=== PATIENT | female | born 1990 | race Caucasian/White ===

== ENCOUNTER 2018-07-09 18:17 | Outpatient (CLI) | payer MEDICAID ==
[2018-07-09 18:31] VITALS: BP 113/77
== END 2018-07-09 19:10 | disposition home or self-care (01) ==
LOC: TRG 18:17
PROVIDERS: ATTEND Obstetrics & Gynecology
DX: O47.03 False labor before 37 completed weeks of gestation, third trimester (principal); Z3A.36 36 weeks gestation of pregnancy
CPT/HCPCS: 59025

== ENCOUNTER 2018-07-10 14:45 | Inpatient (IN) | payer MEDICAID ==
[2018-07-10] MEDS ORDERED: LACTATED RINGERS 1,000 ML ONE (15:15)
[2018-07-10 15:54] LABS: Basophils % (Auto) 0.3 % (0.0-1.8); Eosinophils % (Auto) 0.3 % (0.0-4.3); Hematocrit 41.4 % (30.3-42.9); Hemoglobin 13.8 gm/dl (10.1-14.3); Lymphocytes % (Auto) 22.2 % (13.4-35.0); Mean Corpuscular HGB Conc 33 % (30-34); Mean Corpuscular Volume 85 fl (79-97); Monocytes # (Auto) 0.8 K/mm3 (0.0-0.8); Platelet Count 253 K/mm3 (140-440); Red Blood Count 4.86 M/mm3 (3.65-5.03); Red Cell Distribution Width 14.8 % (13.2-15.2)
[2018-07-10] MEDS ORDERED: LACTATED RINGERS 1,000 ML IV SCH ×2 (16:00→18:00)
[2018-07-10] MEDS ORDERED: STADOL ONE (17:55)
[2018-07-10] MEDS ORDERED: ZOFRAN IV PRN (17:57)
[2018-07-10] MEDS ORDERED: XYLOCAINE 2% INFILTRATI ONE (17:57)
[2018-07-10] MEDS ORDERED: STADOL IV PRN (17:57)
[2018-07-10] MEDS ORDERED: BRETHINE IVP PRN (17:57)
[2018-07-10] MEDS ORDERED: MINERAL OIL PO PRN (17:57)
[2018-07-10] MEDS ORDERED: BRETHINE SUB-Q PRN (17:57)
[2018-07-10] MEDS ORDERED: SUBLIMAZE IV PRN (17:57)
[2018-07-10] MEDS ORDERED: PITOCin/NS 30 UNIT/500ML 30 UNITS/500 ML BAG IV SCH (18:00)
[2018-07-10] MEDS ORDERED: PITOCin/NS 20 UNIT/1000ML DRIP 20 UNITS/1,000 ML BAG IV SCH (18:00)
[2018-07-10] MEDS ORDERED: NARCAN 2 MG/2 ML IV PRN (18:10)
--- NOTE | 2018-07-10 18:53 | Anesthesia Day of Surgery ---
Anesthesia Day of Surgery - Day of Surgery Patient Examined: Yes Patient H&P Reviewed: Yes Patient is NPO: Yes Beta Blockers: No Cardiac Clearance: No Pulmonary Clearance: No Jayson's Test: N/A
--- NOTE | 2018-07-10 18:53 | Anesthesia Consultation ---
Anesthesia Consult and Med Hx Date of service: 07/10/18 - Airway Anesthetic Teeth Evaluation: Good ROM Head & Neck: Adequate Mental/Hyoid Distance: Adequate Mallampati Class: Class II Intubation Access Assessment: Probably Good - Pulmonary Exam CTA: Yes - Cardiac Exam Cardiac Exam: RRR - Pre-Operative Health Status ASA Pre-Surgery Classification: ASA2 Proposed Anesthetic Plan: Epidural - Pulmonary Hx Smoking: No Hx Asthma: No Hx Respiratory Symptoms: No SOB: No COPD: No Home Oxygen Therapy: No Hx Pneumonia: No Hx Sleep Apnea: No - Cardiovascular System Hx Hypertension: No Hx Coronary Artery Disease: No Hx Heart Attack/AMI: No Hx Angina: No Hx Percutaneous Transluminal Coronary Angioplasty (PTCA): No Hx Cardia Arrhythmia: No Hx Pacemaker: No Hx Internal Defibrillator: No Hx Valvular Heart Disease: No Hx Heart Murmur: No Hx Peripheral Vascular Disease: No - Central Nervous System Hx Neuromuscular Disorder: No Hx Seizures: No CVA: No Hx Back Pain: Yes Hx Psychiatric Problems: No - Gastrointestinal Hx Ulcer: No Hx Gastroesophageal Reflux Disease: Yes - Endocrine Hx Renal Disease: No Hx End Stage Renal Disease: No Hx Cirrhosis: No Hx Liver Disease: No Hx Insulin Dependent Diabetes: No Hx Non-Insulin Dependent Diabetes: No Hx Thyroid Disease: No Hx Hypothyroidism: No Hx Hyperthyroidism: No - Hematic Hx Anemia: No Hx Sickle Cell Disease: No - Other Systems Hx Alcohol Use: No Hx Substance Use: No Hx Cancer: No Hx Obesity: No
--- NOTE | 2018-07-10 18:54 | Post Anesthesia Evaluation ---
- Post Anesthesia Evaluation Patient Participated: Yes Airway Patent: Yes Stable Respiratory Function: Yes Nausea/Vomiting: No Temp > 96.8F: Yes Pain Manageable: Yes Adequeate Hydration: Yes Anesthesia Complications: No Block Receding Appropriately: Not Applicable Patient on Ventilator: No
[2018-07-10] MEDS ORDERED: fentaNYL-BUPIV 2 MCG/ML-0.125% 200 MCG/100 ML BAG EPIDURAL SCH (19:00)
[2018-07-10] MEDS ORDERED: AMPICILLIN/NS 2 GM/100 ML 2 GM/100 ML BAG IV ONE (19:14)
--- NOTE | 2018-07-10 22:58 | History and Physical Report ---
History of Present Illness Date of examination: 07/10/18 Chief complaint: contractions History of present illness: The patient is a 28-year-old female 2 para 1001 ANDREW 07/31/2018 at 37 weeks 0 day who presents in active labor. She denies vaginal bleeding or leakage of fluid. She has had care primarily women's [facility] since 13 weeks complicated by glucose intolerance. She is GBS positive. Past History Past Medical History: no pertinent history Past Surgical History: tonsillectomy Family/Genetic History: diabetes, hypertension Social history: - Obstetrical History Expected Date of Delivery: 07/31/18 Actual Gestation: 37 Week(s) 1 Day(s) : 2 Para: 1 Hx # Term Pregnancies: 1 Number of Pregnancies: 0 Spontaneous Abortions: 0 Induced : 0 Number of Living Children: 1 Medications and Allergies Allergies Allergy/AdvReac Type Severity Reaction Status Date / Time No Known Allergies Allergy Verified 07/10/18 15:40 Home Medications Medication Instructions Recorded Confirmed Last Taken Type No Known Home Medications [No 07/10/18 07/10/18 Unknown History Reported Home Medications] Active Meds: Active Medications Butorphanol Tartrate (Stadol) 2 mg IV Q2H PRN PRN Reason: Pain , Severe (7-10) Ephedrine Sulfate (Ephedrine Sulfate) 10 mg IV Q2M PRN PRN Reason: Hypotension Ephedrine Sulfate (Ephedrine Sulfate) 10 mg IV Q2M PRN PRN Reason: Hypotension Fentanyl (Sublimaze) 100 mcg IV Q2H PRN PRN Reason: Labor Pain Lactated Ringer's (Lactated Ringers) 1,000 mls @ 125 mls/hr IV DIRECT MARGIE Lactated Ringer's (Lactated Ringers) 1,000 mls @ 125 mls/hr IV DIRECT MARGIE Oxytocin/Sodium Chloride (Pitocin/Ns 20 Unit/1000ml Drip) 20 units in 1,000 mls @ 125 mls/hr IV DIRECT MARGIE Oxytocin/Sodium Chloride (Pitocin/Ns 30 Unit/500ml) 30 units in 500 mls @ 2 mls/hr IV TITR MARGIE; Protocol Fentanyl/Bupivacaine/Sodium Chlor (Fentanyl-Bupiv 2 Mcg/Ml-0.125%) 200 mcg in 100 mls @ 12 mls/hr EPIDURAL TITR MARGIE; Protocol Ampicillin Sodium (Ampicillin/Ns 1 Gm/50 Ml) 1 gm in 50 mls @ 100 mls/hr IV Q4HR MARGIE; Protocol Mineral Oil (Mineral Oil) 30 ml PO QHS PRN PRN Reason: Constipation Naloxone HCl (Narcan 2 Mg/2 Ml) 0.2 mg IV Q5M PRN PRN Reason: Respiratory sedation Ondansetron HCl (Zofran) 4 mg IV Q8H PRN PRN Reason: Nausea And Vomiting Terbutaline Sulfate (Brethine) 0.25 mg SUB-Q ONCE PRN PRN Reason: Hyperstimulation/Hypertonicity Terbutaline Sulfate (Brethine) 0.25 mg IVP ONCE PRN PRN Reason: Hyperstimulation/Hypertonicity Review of Systems All systems: negative - Vital Signs Vital signs: Vital Signs Pulse BP 104 H 108/70 07/10/18 15:35 07/10/18 15:35 Temp Pulse Resp BP Pulse Ox 98.2 F 117 H 16 100/65 98 07/10/18 18:52 07/10/18 22:55 07/10/18 18:52 07/10/18 22:55 07/10/18 19:36 - Physical Exam Abdomen: Positive: soft (gravid) Uterus: Positive: enlarged (gravid) Extremities: Positive: normal - Obstetrical FHR: auscultation normal Uterine Contraction Monitor Mode: External Cervical Dilatation: 9 Cervical Effacement Percentage: 90 station: -2 Uterine Contraction Pattern: Regular Uterine Tone Measurement Phase: Resting Uterine Contraction Intensity: Strong/Firm Results Result Diagrams: 07/10/18 15:32 Abnormal lab results 07/10/18 Range/Units 15:32 [place] % (Auto) 9.0 H (0.0-7.3) % All other labs normal. Assessment and Plan A: IUP at 37w0d Transitional labor GBS positive P: Admit to labor and delivery [facility] for GBS prophylaxis Routine intrapartum care Anticipate vaginal delivery
[2018-07-10] MEDS ORDERED: AMPICILLIN/NS 1 GM/50 ML 1 GM/50 ML BAG IV SCH (23:16)
--- NOTE | 2018-07-11 00:12 | Procedure Note ---
OB Delivery Note - Delivery Date of Delivery: 07/10/18 Surgeon: MARY WARNER Estimated blood loss: other (400 mL) - Vaginal Delivery presentation: vertex Delivery position: OA Intrapartum events: PROM->1hr before delivery, decreased FHT variability Delivery induction: none Delivery augmentation: rupture of membranes, pitocin Delivery monitor: external FHT, external uterine Route of delivery: Delivery placenta: spontaneous Delivery cord: 3 umbilical vessels Episiotomy: none Delivery laceration: none Anesthesia: epidural - A at 1 minute: 8 at 5 minutes: 9 Gender: Female (2665g (5lb 14 oz) @ 2349 pm)
[2018-07-11] MEDS ORDERED: PHENERGAN PO PRN (02:35)
[2018-07-11] MEDS ORDERED: LANSINOH TP PRN (02:35)
[2018-07-11] MEDS ORDERED: PITOCin/NS 20 UNIT/1000ML DRIP 20 UNITS/1,000 ML BAG IV SCH (02:35)
[2018-07-11] MEDS ORDERED: ZOFRAN IV PRN (02:35)
[2018-07-11] MEDS ORDERED: MILK OF MAGNESIA PO PRN (02:35)
[2018-07-11] MEDS ORDERED: NORCO 5/325 PO PRN (02:35)
[2018-07-11] MEDS ORDERED: TYLENOL PO PRN (02:35)
[2018-07-11] MEDS ORDERED: DULCOLAX PR PRN (02:35)
[2018-07-11] MEDS ORDERED: PHENERGAN PR PRN (02:35)
[2018-07-11] MEDS ORDERED: TUCKS PAD TP PRN (02:35)
[2018-07-11] MEDS ORDERED: SODIUM CHLORIDE FLUSH SYRINGE 10 ML IV PRN (02:35)
[2018-07-11] MEDS ORDERED: BENADRYL PO PRN (02:35)
[2018-07-11] MEDS ORDERED: IBUPROFEN PO SCH (03:00)
[2018-07-11] MEDS: IBUPROFEN PO SCH ×3 (05:35→18:33)
[2018-07-11] MEDS: FEOSOL PO SCH ×2 (10:50→22:22)
--- NOTE | 2018-07-11 12:06 | Progress Note ---
Assessment and Plan - Patient Problems (1) Active labor at term Current Visit: Yes Status: Acute Plan to address problem: patient doing well consider discharge tomorrow Subjective - Subjective Date of service: 07/11/18 Interval history: Patient without complaints. Currently bonding with . Pain well controlled Patient reports: appetite normal, voiding normally, pain well controlled : doing well Objective - Vital Signs Latest vital signs: Vital Signs Temp Pulse Resp BP BP Pulse Ox 07/11/18 08:05 98 F 78 18 102/64 07/11/18 06:50 98.3 F 84 18 104/64 07/11/18 02:15 97.7 F 80 18 98/61 99 07/11/18 00:46 98 H 99/63 07/11/18 00:36 102 H 95/76 07/11/18 00:16 110 H 124/70 07/11/18 00:03 112 H 97 07/10/18 23:58 113 H 96 07/10/18 23:55 122 H 122/78 07/10/18 23:54 123 H 130/71 07/10/18 23:38 130 H 112/74 07/10/18 23:24 107 H 109/66 07/10/18 23:10 111 H 108/70 07/10/18 22:55 117 H 100/65 07/10/18 22:38 110 H 97/69 07/10/18 22:23 129 H 91/65 07/10/18 22:10 90 106/69 07/10/18 21:53 118 H 114/72 07/10/18 21:40 113 H 118/76 07/10/18 21:23 110 H 110/72 07/10/18 21:08 116 H 108/67 07/10/18 20:54 95 H 113/71 07/10/18 20:39 116 H 106/74 07/10/18 20:25 93 H 111/69 07/10/18 20:08 99 H 109/55 07/10/18 19:54 98 H 128/63 07/10/18 19:38 85 117/71 07/10/18 19:36 98 H 98 07/10/18 19:31 92 H 98 07/10/18 19:26 100 H 98 07/10/18 19:24 104 H 118/68 07/10/18 19:21 100 H 99 07/10/18 19:16 87 98 07/10/18 19:11 91 H 98 07/10/18 19:09 84 114/68 07/10/18 19:06 105 H 97 07/10/18 19:01 99 H 98 07/10/18 18:56 100 H 97 07/10/18 18:53 99 H 123/71 07/10/18 18:52 98.2 F 93 H 16 117/67 07/10/18 18:51 95 H 98 07/10/18 18:50 101 H 115/65 07/10/18 18:48 88 116/66 07/10/18 18:46 99 H 116/65 97 07/10/18 18:44 88 116/64 07/10/18 18:41 111 H 119/72 96 07/10/18 18:40 91 H 115/64 07/10/18 18:38 102 H 122/76 07/10/18 18:36 86 100 07/10/18 18:35 87 119/68 90 07/10/18 18:32 104 H 126/86 07/10/18 18:31 109 H 97 07/10/18 18:30 106 H 125/79 07/10/18 18:26 107 H 98 07/10/18 18:21 105 H 98 07/10/18 17:53 117 H 130/81 07/10/18 15:35 104 H 108/70 Intake and Output 07/10/18 07/11/18 07/11/18 22:59 06:59 14:59 Intake Total 120 360 Output Total 1300 600 Balance -1180 -240 Intake: Oral 360 Intake, Free Water 120 Output: Urine 1300 600 Void 1300 600 Other: Total, Intake Amount 360 Total, Output Amount 700 600 Weight 81.193 kg - Exam Uterus: Present: normal, firm - Labs Labs: Abnormal lab results 07/10/18 Range/Units 15:32 [place] % (Auto) 9.0 H (0.0-7.3) %
[2018-07-11 16:29] LABS: Hematocrit 32.6 % (30.3-42.9); Hemoglobin 10.9 gm/dl (10.1-14.3)
[2018-07-12] MEDS: IBUPROFEN PO SCH ×4 (00:03→19:02)
[2018-07-12] MEDS ORDERED: M-M-R II VACCINE SUB-Q ONE (00:12)
[2018-07-12] MEDS ORDERED: BOOSTRIX IM ONE (06:00)
--- NOTE | 2018-07-12 08:20 | Progress Note ---
Assessment and Plan A/P PPD1 s/p Doing well VSS labs hgb 13-10 stable d/c home tomorrow Subjective - Subjective Date of service: 07/12/18 Principal diagnosis: s/p Patient reports: appetite normal, voiding normally, pain well controlled, flatus, ambulating normally [place]: doing well Objective - Vital Signs Latest vital signs: Vital Signs Temp Pulse Resp BP BP Pulse Ox 07/12/18 00:38 98.4 F 80 16 101/64 96 07/11/18 16:25 98.4 F 83 20 101/63 07/11/18 13:01 98.2 F 79 20 107/65 Intake and Output 07/11/18 07/12/18 07/12/18 23:59 07:59 15:59 Intake Total 980 Balance 980 Intake: Oral 680 Intake, Free Water 300 Other: Total, Intake Amount 320 # Voids Void 1 - Exam Breasts: Present: normal Cardiovascular: Present: Regular rate, Normal S1 Lungs: Present: Clear to auscultation, Normal air movement Abdomen: Present: normal appearance, soft, normal bowel sounds. Absent: distention, tenderness, guarding Vulva: both: normal Uterus: Present: normal, firm, fundal height below umbilicus. Absent: bogginess, tenderness Extremities: Present: normal Deep Tendon Reflex Grade: Normal +2
--- NOTE | 2018-07-12 08:22 | Discharge Summary ---
Providers - Providers Date of Admission: 07/10/18 23:31 Date of discharge: 07/13/18 Attending physician: MARY WARNER Primary care physician: MARY WARNER Hospitalization Reason for admission: active labor Delivery: Episiotomy: none Laceration: none Incision: normal Other procedures: none complications: none Discharge diagnosis: IUP at term delivered [place] baby: female Hospital course: patient came in in active labor. Patient delivered vaginally. Unremarkable hospital course with d/c home PP D 2. f/u in 4 weeks for Condition at discharge: Good Disposition: DC-01 TO HOME OR SELFCARE Plan - Discharge Medications Prescriptions: Ibuprofen [Motrin] 800 mg PO Q8HR PRN #60 tablet PRN Reason: Pain, Mild (1-3) HYDROcodone/APAP 5-325 [[place] 5/325] 1 each PO Q6HR PRN #20 tablet PRN Reason: Pain - Provider Discharge Summary Activity: routine, no sex for 6 weeks, no strenuous exercise Diet: routine Instructions: routine Additional instructions: [] Smoking cessation referral if applicable(refer to patient education folder for contact #) [] Refer to [facility]'s [facility] Booklet Call your doctor immediately for: * Fever > 100.5 * Heavy vaginal bleeding ( >1 pad per hour) * Severe persistent headache * Shortness of breath * Reddened, hot, painful area to leg or breast * Drainage or odor from incision. * Keep incision clean and dry at all times and follow doctor's instructions regarding bathing/showering - Follow up plan Follow up: MARY WARNER MD [Primary Care Provider] - 08/08/18
[2018-07-12] MEDS: FEOSOL PO SCH ×2 (10:40→21:05)
[2018-07-13] MEDS: IBUPROFEN PO SCH ×3 (01:26→13:00)
[2018-07-13] MEDS: FEOSOL PO SCH (10:35)
[2018-07-13 13:40] VITALS: BP 112/77
== END 2018-07-13 13:46 | disposition home or self-care (01) | DRG 775 ==
LOC: TRG 14:45 → LD 14:57 → TRG 23:30 → LD 23:31 → OB 07-11 02:05
PROVIDERS: ADMIT Obstetrics & Gynecology; ATTEND Obstetrics & Gynecology
PROC: 10E0XZZ Delivery of Products of Conception, External Approach (ICD-10-PCS; principal; 2018-07-11)
PROC: 3E0R3BZ Introduction of Anesthetic Agent into Spinal Canal, Percutaneous Approach (ICD-10-PCS; 2018-07-11)
PROC: 00HU33Z Insertion of Infusion Device into Spinal Canal, Percutaneous Approach (ICD-10-PCS; 2018-07-11)
PROC: 3E0234Z Introduction of Serum, Toxoid and Vaccine into Muscle, Percutaneous Approach (ICD-10-PCS; 2018-07-12)
DX: O99.824 Streptococcus B carrier state complicating childbirth (principal); K21.9 Gastro-esophageal reflux disease without esophagitis; O99.62 Diseases of the digestive system complicating childbirth; O42.02 Full-term premature rupture of membranes, onset of labor within 24 hours of rupture; Z3A.37 37 weeks gestation of pregnancy; Z37.0 Single live birth; Z83.3 Family history of diabetes mellitus; Z82.49 Family history of ischemic heart disease and other diseases of the circulatory system; Z90.89 Acquired absence of other organs; Z23 Encounter for immunization
CPT/HCPCS: 36415; 59025; 85014; 85018; 85025; 86592; 86850; 86900; 86901; 96360; 96374; G0378; J0290; J0595; J2590; J7120